=== PATIENT | female | born 1960 | race Hispanic/Latino ===

== ENCOUNTER 2017-07-29 22:21 | Emergency (ER) | payer OTHER ==
--- NOTE | 2017-07-30 00:59 | C.PDOC ---
History Of Present Illness 57 year old female presents to the ER with a complaint of pain and swelling to the left wrist after she fell earlier today. Patient states she was okay at the time but now developed pain and swelling. Denies weakness or numbness of the left wrist. Time Seen by Provider: 07/29/17 22:38 Chief Complaint (Nursing): Finger,Hand,&Wrist History Per: Patient History/Exam Limitations: no limitations Onset/Duration Of Symptoms: Hrs Current Symptoms Are (Timing): Still Present Quality: "Pain" Exacerbating Factor(s): Strenuous Use Of Affected Area Past Medical History Reviewed: Historical Data, Nursing Documentation, Vital Signs Vital Signs: Last Vital Signs Temp 97.4 F L 07/30/17 01:02 Pulse 81 07/30/17 01:02 Resp 17 07/30/17 01:02 BP 131/72 07/30/17 01:02 Pulse Ox 99 07/30/17 01:17 - Medical History PMH: No Chronic Diseases Surgical History: No Surg Hx Family History: States: Unknown Family Hx - Social History Hx Alcohol Use: Yes Hx Substance Use: No - Immunization History Hx Tetanus Toxoid Vaccination: No Hx Influenza Vaccination: Yes Hx Pneumococcal Vaccination: No Review Of Systems Musculoskeletal: Positive for: Hand Pain Neurological: Negative for: Weakness, Numbness Physical Exam - Physical Exam Appears: Non-toxic, No Acute Distress Skin: Normal Color, Warm, Dry Head: Atraumatic, Normacephalic Eye(s): bilateral: Normal Inspection Extremity: Capillary Refill (<2 seconds), Other (Minimal area of tenderness, swelling, and erythema to base of left hand-hypothenar area. No dorsal tenderness or deformity.) Extremity: Bilateral: Normal Color And Temperature Pulses: Left Radial: Normal, Right Radial: Normal Neurological/Psych: Oriented x3, Normal Speech, Normal Motor, Normal Sensation ED Course And Treatment O2 Sat by Pulse Oximetry: 99 (Room air) Pulse Ox Interpretation: Normal - Other Rad Left wrist x-ray X-Ray: Interpreted by Me, Viewed By Me Interpretation: Questionable fracture of the pisiform bone. - CT Scan/US CT of left upper extremity Other Rad Studies (CT/US): Read By Radiologist, Radiology Report Reviewed CT/US Interpretation: EXAM: CT Left Upper Extremity Without Intravenous Contrast, Wrist. CLINICAL HISTORY: 57 years old, female; Injury or trauma; Fall; Initial encounter; Swelling (edema); Wrist; Left; Additional. info: Swelling and pain at base of hypothenar, ? FX on xr. TECHNIQUE: Axial computed tomography images of the left wrist without intravenous contrast. All CT scans at. this facility use one or more dose reduction techniques, viz.: automated exposure control; ma/kV. adjustment per patient size (including targeted exams where dose is matched to indication; i.e. head);. or iterative reconstruction technique. Coronal and sagittal reformatted images were created and reviewed. COMPARISON: No relevant prior studies available. FINDINGS: Bones/joints: Mildly displaced fracture pisiform. No dislocation. Soft tissues : Soft tissue swelling along hypothenar eminence. IMPRESSION: 1. Pisiform fracture. Progress Note: Left wrist x-ray ordered, results show questionable pisiform fracture, will CT to confirm. Patient refuses pain medications at this time. CT results d/w pt, Left volar splint placed to left hand at 20-30 degrees at wrist. Pt will follow up with Hand surgeon in [place]- will call PMD on monday for referral. CD of Hand CT given as well as a printed report. Pt tolerated splint procedure well, no signs of post procedure compartment syndrome. Motrin odrdered. pt placed in sling and understands all follow up and return precautions. Pt verbalized understanding of all instructions Orthopedic Time Out: Side verified, Site verified, Patient ID confirmed Procedure: Splint Type: Short, Volar Location: Left, Hand (wrist at 30 degrees) Consent obtained: Verbal Performed by: Mid-level Provider Diagnosis: Fracture Type: Closed Location: Left, Palmar (pisiform) Other:: Pt placed in sling Understads to follw up with Hand specialist Disposition Counseled Patient/Family Regarding: Diagnosis, Need For Followup, Rx Given - Disposition Referrals: Hand surgery, private [Other] Disposition: HOME/ ROUTINE Disposition Time: 00:57 Condition: STABLE Additional Instructions: Please follw up with Hand surgeon in [facility]- may call PCP for a referral Take tylenol or advil for splint Keep splint until seen by Hand specialist Return to ER if numbness, finger discoloration, severe pain or worse Instructions: Hand Fracture (ED) Forms: [employer] (Slovak) - Clinical Impression Clinical Impression: Closed fracture pisiform - PA / [employer]ATE / Resident Statement MD/DO has reviewed & agrees with the documentation as recorded. - Scribe Statement The provider has reviewed the documentation as recorded by the Scribe Tano Talley All medical record entries made by the Scribe were at my direction and personally dictated by me. I have reviewed the chart and agree that the record accurately reflects my personal performance of the history, physical exam, medical decision making, and the department course for this patient. I have also personally directed, reviewed, and agree with the discharge instructions and disposition.
[2017-07-30 01:04] VITALS: BP 131/72; PULSE 81; RESP 17; TEMP 97.4
[2017-07-30 01:10] VITALS: O2SAT 99
--- NOTE | 2017-07-30 09:19 | CT ---
PROCEDURE: CT of the left hand and wrist without contrast HISTORY: SWELLING AND PAIN AT BASE OF HYPOTHENAR, ?FX ON XR COMPARISON: Comparison is made to the previous x-ray of the left wrist TECHNIQUE: Axial and reformatted coronal and sagittal CT images of the left wrist and hand were obtained without IV contrast administration. Reformatted 3D images of the wrist and hand were also obtained. FINDINGS: There is slightly displaced fracture at the pisiform bone adjacent to the Triquetral bone. Otherwise no evidence of acute fracture or dislocation. Mild osteoarthritic changes are noted more prominent at the 1st and 2nd carpometacarpal joints and radiocarpal joint. Soft tissue swelling noted at the left wrist more prominent at the proximal and medial aspect of the wrist. IMPRESSION: Acute slightly displaced fracture at the pisiform bone in the medial proximal aspect of the left wrist. Adjacent soft tissue swelling. Preliminary report was submitted by [facility].
--- NOTE | 2017-07-30 09:57 | RAD ---
PROCEDURE: Left Wrist Radiographs. HISTORY: pain, swelling, s/p fall COMPARISON: None. FINDINGS: BONES: There is acute fracture at the pisiform bone. Otherwise no evidence of acute fracture or dislocation. JOINTS: Normal. No dislocation. SOFT TISSUES: Normal. OTHER FINDINGS: None. IMPRESSION: Pisiform acute fracture.
== END 2017-07-30 01:02 | disposition home or self-care (01) ==
LOC: C.ER 22:21
DX: S62.162A Displaced fracture of pisiform, left wrist, initial encounter for closed fracture (principal); W18.30XA Fall on same level, unspecified, initial encounter; Y92.89 Other specified places as the place of occurrence of the external cause